=== PATIENT | female | born 2000 | race Caucasian/White ===

== ENCOUNTER 2019-03-23 07:53 | Emergency (ER) | payer BC, OTHER ==
[~2019-03-23] VITALS: Ht 172.7 cm; Wt 59.0 kg
[2019-03-23] MEDS ORDERED: RT-ALBUTEROL/IPRATROPIUM 3 ML (DUONEB) VIAL INH ONE (08:15)
[2019-03-23] MEDS ORDERED: KETOROLAC 15 MG/ML VIAL IVP ONE (08:15)
[2019-03-23] MEDS ORDERED: HYDROcodone/APAP 5 MG/325 MG (LORTAB) TAB PO ONE (08:15)
--- NOTE | 2019-03-23 08:27 | Diagnostic Imaging Report ---
INDICATION: Right-sided chest pain, recent trauma. No pneumothorax or hemothorax is demonstrated. Cardiomediastinal and hilar contours were normal and no appreciable or displaced chest wall fracture deformity is identified. Lungs are clear. There is no failure pattern. IMPRESSION: Unremarkable frontal chest x-ray. Dictated by: Dictated on workstation # [id number]
[2019-03-23 08:56] LABS: HEMATOCRIT 40 % (35-52); MEAN CORPUSCULAR HEMOGLOBIN 29 PG (25-34); MEAN CORPUSCULAR VOLUME 88 FL (80-99); WHITE BLOOD COUNT 8.3 10^3/uL (4.3-11.0)
[2019-03-23 08:57] LABS: BASOPHILS # (AUTO) 0.1 10^3/uL (0.0-0.1); BASOPHILS % (AUTO) 1 % (0-10); EOSINOPHILS # (AUTO) 0.2 10^3/uL (0.0-0.3); EOSINOPHILS % (AUTO) 2 % (0-10); LYMPHOCYTES # (AUTO) 3.6 X 10^3 (1.0-4.0); LYMPHOCYTES % (AUTO) 44 % (12-44); MEAN CORPUSCULAR HGB CONC 33 G/DL (32-36); MONOCYTES # (AUTO) 0.5 X 10^3 (0.0-1.0); MONOCYTES % (AUTO) 6 % (0-12); NEUTROPHILS # (AUTO) 3.9 X 10^3 (1.8-7.8); NEUTROPHILS % (AUTO) 47 % (42-75); PLATELET COUNT 240 10^3/uL (130-400); RED CELL DISTRIBUTION WIDTH 13.7 % (10.0-14.5)
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
[2019-03-23 09:09] LABS: ALANINE AMINOTRANSFERASE 53 U/L (0-55); ALBUMIN 4.3 GM/DL (3.2-4.5); ALKALINE PHOSPHATASE 84 U/L (40-136); BILIRUBIN,TOTAL 0.7 MG/DL (0.1-1.0); BUN/CREATININE RATIO 17; CALCIUM 9.4 MG/DL (8.5-10.1); CARBON DIOXIDE 25 MMOL/L (21-32); CHLORIDE 102 MMOL/L (98-107); CREATININE SERUM 0.86 MG/DL (0.60-1.30); GFR ESTIMATED > 60; GLUCOSE 101 MG/DL (70-105); POTASSIUM 4.1 MMOL/L (3.6-5.0); SODIUM 141 MMOL/L (135-145); TOTAL PROTEIN 7.1 GM/DL (6.4-8.2)
[2019-03-23] MEDS ORDERED: IBUP-1773 PO (09:19)
== END 2019-03-23 09:27 | disposition home or self-care (01) ==
LOC: ER FS 07:55
DX: R07.81 Pleurodynia (principal); F17.210 Nicotine dependence, cigarettes, uncomplicated
CPT/HCPCS: 36415; 71045; 80053; 85025; 85379

== ENCOUNTER 2019-08-23 08:48 | Emergency (ER) | payer BC, OTHER ==
[~2019-08-23] VITALS: Ht 175.3 cm; Wt 63.6 kg
[~2019-08-23 08:48] MED LIST: IBUP-1773 PO
--- NOTE | 2019-08-23 09:41 | Diagnostic Imaging Report ---
INDICATION: Chronic left chest pain. History of previous trauma to the chest. TECHNIQUE: Two view chest 9:29 AM CORRELATION STUDY: 03/23/2019 FINDINGS: The heart size, mediastinal configuration and pulmonary vasculature are within normal limits. The lungs are clear with no consolidating infiltrate. There is no significant pleural effusion, thickening or pneumothorax. Visualized osseous structures are unremarkable. IMPRESSION: 1. Negative for acute abnormality of the chest. Dictated by: Dictated on workstation # [id number]
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
[2019-08-23] MEDS ORDERED: TRAM-42 PO (10:20)
[2019-08-23] MEDS ORDERED: KETOROLAC 60 MG/2 ML VIAL ONE (10:42)
[2019-08-23 10:45] VITALS: BP 130/62
[2019-08-23] MEDS ORDERED: KETOROLAC 60 MG/2 ML VIAL IM ONE (10:45)
== END 2019-08-23 10:45 | disposition home or self-care (01) ==
LOC: EDUNIT# 08:48 → ER FS 08:49
DX: R07.89 Other chest pain (principal); Z88.5 Allergy status to narcotic agent; Z87.828 Personal history of other (healed) physical injury and trauma
CPT/HCPCS: 71046

== ENCOUNTER → 2019-09-15 | Outpatient (CLI) | payer BC, OTHER ==
[~2019-09-15] MED LIST changes: +TRAM-42 PO
--- NOTE | 2019-09-15 10:53 | Diagnostic Imaging Report ---
INDICATION: Left shoulder pain. AP, oblique and transscapular views of the left shoulder are obtained. FINDINGS: No acute fracture or dislocation is identified. No abnormal lytic or sclerotic focus is seen, and there is no radiopaque foreign body. IMPRESSION: No acute abnormality. Dictated by: Dictated on workstation # [id number]
== END ==
LOC: RAD FS 10:26
PROVIDERS: ATTEND Nurse Practitioner
DX: M25.512 Pain in left shoulder (principal)
CPT/HCPCS: 73030

== ENCOUNTER 2020-03-30 04:23 | Emergency (ER) | payer OTHER ==
[~2020-03-30] VITALS: Ht 175.2 cm; Wt 65.2 kg
[2020-03-30 04:27] VITALS: BP 153/90
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
== END 2020-03-30 04:48 ==
LOC: EDUNIT# 04:23 → ER FS 04:25
DX: F41.9 Anxiety disorder, unspecified (principal); Z88.5 Allergy status to narcotic agent; Z13.39 Encounter for screening examination for other mental health and behavioral disorders
CPT/HCPCS: 99283

== ENCOUNTER 2021-03-05 08:22 | Emergency (ER) | payer BC, OTHER ==
[~2021-03-05] VITALS: Ht 175 cm; Wt 60.0 kg
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
--- NOTE | 2021-03-05 09:25 | Diagnostic Imaging Report ---
PROCEDURE: CT maxillofacial without contrast. TECHNIQUE: Multiple contiguous axial images were obtained through the facial bones without the use of intravenous contrast. Auto Exposure Controls were utilized during the CT exam to meet ALARA standards for radiation dose reduction. INDICATION: Facial trauma. Right-sided jaw pain. COMPARISON: None. FINDINGS: No acute facial fractures are visualized. The mandible, zygomatic arches, and pterygoid plates are intact. The bilateral TMJ demonstrate normal articulation. No nasal bone fractures. The bony nasal septum is slightly deviated to the right without fracture. A mucus retention cyst is seen in the left maxillary sinus. There is mild mucosal thickening in the left maxillary sinus and left sphenoid sinus. The mastoid air cells are well pneumatized. The globes and orbits are symmetric and unremarkable. No evidence of orbital rim fracture. IMPRESSION: 1. No evidence of acute facial fractures. The bilateral TMJ demonstrate normal alignment. Dictated by: Dictated on workstation # [id number]
[2021-03-05 09:56] VITALS: BP 132/65
--- OUTSIDE RECORDS SUMMARY | 2021-03-05 12:48 | XMS REPORT | Clinical Summary ---
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 Active hydrocortisone 1 % cream Apply 30 g 0 1 topically 2 5 (two) times a day. Active Problems Not on file Social History Date Tobacco Use Types Packs/Day Years Used Never Smoker Comments Alcohol Use Standard Drinks/Week No 0 (1 standard drink = 0.6 o z pure alcohol) Sex Assigned at Date Recorded Not on file Last Filed Vital Signs Reading Time Taken Comments Vital Sign 119/65 05/09/2015 11:46 PM CDT Blood Pressure 80 05/09/2015 7:17 PM CDT Pulse 36.4 C (97.5 F) 05/09/2015 7:17 PM CDT Temperature 19 05/09/2015 7:17 PM CDT Respiratory Rate 100% 05/09/2015 7:17 PM CDT Oxygen Saturation - - Inhaled Oxygen Concentration 61.2 kg (135 lb) 05/09/2015 7:17 PM CDT Weight 170.2 cm (5' 7") 05/09/2015 7:17 PM CDT Height 21.14 05/09/2015 7:17 PM CDT Body Mass Index Plan of Treatment Not on file Results Not on filefrom Last 3 Months Insurance Type Payer Benefit Subscriber ID Effective Phone Address Plan / Dates Group [facility] [id number] [employer] resent [phone] Maddi Max Personal/F Mother 01/01/[address] [place] (Home) [place] [address] Maddi Max Personal/F Mother 01/01/1969 [address] [place] (Home) [place] [address]
== END 2021-03-05 09:57 | disposition home or self-care (01) ==
LOC: EDUNIT# 08:22 → ER FS 08:25
DX: S00.83XA Contusion of other part of head, initial encounter (principal); W50.0XXA Accidental hit or strike by another person, initial encounter
CPT/HCPCS: 70486; 84703

== ENCOUNTER 2021-09-13 21:38 | Emergency (ER) | payer BC, OTHER ==
--- NOTE | 2021-09-13 22:05 | ED General ---
General Chief Complaint: General Problems/Pain Stated Complaint: FEET NUMBESS,SORE ANKLES Nursing Triage Note: Pt states that for about 5 weeks her toes have been going numb intermittently. Pt states they will turn white and feel like pins and needles Source of Information: Patient History of Present Illness Date Seen by Provider: Sep 13, 2021 Time Seen by Provider: 09:40 Initial Comments Patient is a 21-year-old female who presents with blanching of her toes hands during cold weather with an associated numbness worse with cold temperatures. Patient symptoms resolved extremities are warmed. Patient has appointment with her PCP on Thursday. No other symptoms or complaints Timing/Duration: Intermittent, Other (No other symptoms or complaints) Severity: Mild Modifying Factors: improves with Other Associated Systoms: Other Allergies and Home Medications Allergies Coded Allergies: morphine (Verified Allergy, Unknown, 08/23/19) Patient Home Medication List Home Medication List Reviewed: Yes Ibuprofen (Ibuprofen) 600 Mg Tablet, 600 MG PO Q6H PRN for PAIN-MILD Prescribed by: JEANNE MINER on 03/23/19 0919 Tramadol HCl (Ultram) 50 Mg Tablet, 50 MG PO Q6H PRN for PAIN-MODERATE (5-7) Prescribed by: ANA BALL on 08/23/19 1020 Review of Systems Review of Systems Constitutional: see HPI EENTM: see HPI Respiratory: see HPI Cardiovascular: see HPI Gastrointestinal: see HPI Genitourinary: see HPI Musculoskeletal: see HPI Skin: see HPI Psychiatric/Neurological: See HPI Hematologic/Lymphatic: See HPI Immunological/Allergic: see HPI All Other Systems Reviewed Negative Unless Noted: Yes Past Grhzjsq-Cwdgxh-Nlumhq Hx Patient Social History Tobacco Use?: No Substance use?: No Alcohol Use?: No Pt feels they are or have been: No Seasonal Allergies Seasonal Allergies: No Past Medical History Surgeries: Yes (left rotator cuff repair) Orthopedic Respiratory: Yes (scar tissue left lung from pneumothorax) Cardiac: No Neurological: No Female Reproductive Disorders: Denies Sexually Transmitted Disease: No HIV/AIDS: No Genitourinary: No Gastrointestinal: No Musculoskeletal: No Fractures Endocrine: No HEENT: No Cancer: No Psychosocial: No Integumentary: No Blood Disorders: No Physical Exam Vital Signs Vital Signs - First Documented 09/13/21 21:42 Temp 36.1 Pulse 87 Resp 16 B/P (MAP) 135/82 (99) Pulse Ox 100 O2 Delivery Room Air Capillary Refill : Less Than 3 Seconds Height, Weight, BMI Height: 5'8.00" Weight: 130lbs. oz. 58.057171fv; 19.00 BMI Method:Stated General Appearance: No Apparent Distress, WD/WN Eyes: Bilateral Eye Normal Inspection, Bilateral Eye PERRL, Bilateral Eye EOMI HEENT: PERRL/EOMI, Normal ENT Inspection Respiratory: Normal Breath Sounds Extremity: Other (Decreased cap Refill, normal pulse) Neurologic/Psychiatric: Alert, Oriented x3, No Motor/Sensory Deficits Progress/Results/Core Measures Suspected Sepsis SIRS Temperature: Pulse: 87 Respiratory Rate: 16 Blood Pressure 135 /82 Mean: 99 Results/Orders Vital Signs/I&O 09/13/21 21:42 Temp 36.1 Pulse 87 Resp 16 B/P (MAP) 135/82 (99) Pulse Ox 100 O2 Delivery Room Air Capillary Refill : Less Than 3 Seconds Blood Pressure Mean: 99 Departure Communication (Admissions) Symptoms consistent with Raynaud's syndrome. Recommendations are following up with PCP on Thursday as scheduled for confirmation of diagnosis and further management. Impression Primary Impression: Raynaud's syndrome Disposition: HOME, SELF-CARE Condition: Stable Departure-Patient Inst. Decision time for Depature: 22:04 Referrals: GUEVARA PETERSON APRN (PCP) Primary Care Physician [facility] (Family) Primary Care Physician Patient Instructions: Raynaud Disease Add. Discharge Instructions: Please wear extra socks avoid prolonged cold exposure and follow-up with your PCP on Thursday. All discharge instructions reviewed with patient and/or family. Voiced understanding. BERNADETTE MEDINA DO Sep 13, 2021 22:04
[2021-09-13 22:06] VITALS: BP 135/82
== END 2021-09-13 22:08 | disposition home or self-care (01) ==
LOC: EDUNIT# 21:38 → ER FS 21:39
DX: I73.00 Raynaud's syndrome without gangrene (principal)
CPT/HCPCS: 99281

== ENCOUNTER 2022-02-11 13:08 | Emergency (ER) | payer OTHER, BC ==
[~2022-02-11] VITALS: Ht 177.8 cm; Wt 64.0 kg
[2022-02-11] MEDS ORDERED: diphenhydrAMINE 50 MG/ML INJ (BENADRYL) IM STA (13:28)
[2022-02-11] MEDS ORDERED: ORPHENADRINE 60 MG/2 ML (NORFLEX) AMP (ED ONLY) IM STA (13:28)
[2022-02-11] MEDS ORDERED: KETOROLAC 60 MG/2 ML VIAL IM STA (13:28)
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
[2022-02-11] MEDS ORDERED: IBUP-1773 PO (14:10)
[2022-02-11] MEDS ORDERED: TRM50T PO (14:10)
[2022-02-11] MEDS ORDERED: ONDA4TAB11 PO (14:10)
[2022-02-11 14:27] VITALS: BP 121/64
[2022-02-11] MEDS ORDERED: METH-732 PO (14:28)
== END 2022-02-11 14:27 | disposition home or self-care (01) ==
LOC: EDUNIT# 13:08 → ER FS 13:09
DX: S06.0X0A Concussion without loss of consciousness, initial encounter (principal); Z28.310 Unvaccinated for COVID-19; V49.40XA Driver injured in collision with unspecified motor vehicles in traffic accident, initial encounter
CPT/HCPCS: 70450; 72125